=== PATIENT | female | born 1990 | race Hispanic/Latino ===

== ENCOUNTER 2020-11-22 17:11 | Day surgery (SDC) | payer SELFPAY ==
[2020-11-22 17:55] VITALS: BP 124/79; TEMP 98.3; BMI 27.4
[2020-11-22] MEDS ORDERED: hydrALAZINE 20 MG/ML VIAL SLOW IVP PRN (18:10)
[2020-11-22] MEDS ORDERED: Lactated Ringer's 1,000 ML IV SCH (18:30)
[2020-11-22 18:49] LABS: Bacteria/HPF None Seen HPF (None Seen); Bilirubin Negative (Negative); Blood, Urine Negative (Negative); Clarity Clear (Clear); Glucose, Urine (Dipstick) Normal (Negative); Ketone, Urine Negative (Negative); Leukocyte Negative Leu/uL (Negative); Nitrite Negative (Negative); Protein, Urine (Dipstick) Negative (Neg-Trace); RBC/HPF 0-3 HPF (0-3); Specific Gravity, Urine 1.006 (1.002-1.036); Squamous Epithelial 0-3 HPF (0-3); Urobilinogen Normal mg/dL (Less than 2); WBC/HPF 0-3 HPF (0-3); pH, Urine 6.5 (5.0-9.0)
--- NOTE | 2020-11-22 19:09 | ULT ---
Limited obstetrical ultrasound: 11/22/2020 COMPARISON: None HISTORY: 32 week with spotting and pain TECHNIQUE: Multiplanar grayscale sonographic imaging of the gravid uterus obtained. FINDINGS: There is a single intrauterine gestation demonstrating a vertex presentation. The placenta is located anteriorly, with no evidence for previa or abruption. heart rate is 147 bpm. Amniotic fluid index is 8.5 cm. The cervix is not well visualized on this examination and is estimate d at 3 cm in length. biometry: Biparietal diameter 7.8 cm 31 weeks 3 days Head circumference 28.5 cm 31 weeks 2 days Abdominal circumference 27.1 cm 31 weeks 2 days Femur length 6.0 cm 31 weeks 3 days Average age based on ultrasound is 31 weeks 2 days. Estimated date of delivery is 01/24/2021. Estimate d weight is 1736 g +/- 257 g (12th percentile for a clinical age of 32 weeks 3 days). IMPRESSION: Single intrauterine gestation as detailed above.
[2020-11-22] MEDS ORDERED: FLU VACC QS2020-21(6MOS UP)/PF 60 MCG/0.5 ML SYRINGE IM ONE (19:45)
--- NOTE | 2020-11-23 07:48 | SS ---
DATE OF ADMISSION: 11/22/2020 DATE OF DISCHARGE: 11/22/2020 CHIEF COMPLAINT: Abdominal pain, vaginal spotting. HISTORY OF PRESENT ILLNESS: Ms. Evans is a 30-year-old G1, P0, with an estimated date of confinement of 01/14/2021, who presents complaining of a 24- hour history of intermittent abdominal pain as well as a small amount of spotting noted this morning. She denies ruptured membranes or heavy vaginal bleeding. Her care has been in [place], and she reports no complications. Information is obtained through her cousin, using her as an lead technical writer. PAST MEDICAL HISTORY: None. PAST SURGICAL HISTORY: Includes breast augmentation. CURRENT MEDICATIONS: vitamins. ALLERGIES: NO KNOWN ALLERGIES. SOCIAL HISTORY: Denies tobacco, alcohol, or drug use. FAMILY HISTORY: Unremarkable. REVIEW OF SYSTEMS: Denies nausea, vomiting, fever, chills, ruptured membranes, cough, shortness of breath. PHYSICAL EXAMINATION: VITAL SIGNS: In triage, her vital signs are stable. She is afebrile. GENERAL: She is pleasant and in no acute distress. ABDOMEN: Soft, nontender, and gravid. PELVIC EXAMINATION: No vaginal bleeding is seen. FHTs are stable. No decels seen. UCs are irregular. LABORATORY DATA: Urinalysis shows a specific gravity of 1.006. Urine protein is negative. Urine ketones negative, blood negative, nitrites negative, leukocyte esterase negative. On microscopic, her rbc's are 0 to 3, wbc 0 to 3, squamous cells 0 to 3 with no bacteria seen. Ultrasound shows a vertex fetus with biometry consistent with 31 weeks 2 days. ANGEL is 8.5. Cervical length is 3 cm. The placenta is anterior without evidence of previa. The patient is hydrated with a liter of fluid, and there were no significant contractions seen after hydration. ASSESSMENT: 1. A 32 and 3/7th week intrauterine . 2. No evidence of labor, abruption, or urinary tract infection. PLAN: The patient will be dismissed home. Precautions were given to her via her cousin as an lead technical writer. She states she will be returning to [place] next week. She was told to return here should she have any further problems. Job ID: [id number] [facility]
== END 2020-11-22 19:20 | disposition home or self-care (01) ==
LOC: L&D/OP 17:11
PROVIDERS: ATTEND Obstetrics & Gynecology
DX: O99.891 Other specified diseases and conditions complicating pregnancy (principal); R10.9 Unspecified abdominal pain; O26.853 Spotting complicating pregnancy, third trimester; Z3A.32 32 weeks gestation of pregnancy
CPT/HCPCS: 76815; 81003